=== PATIENT | male | born 1965 | race Caucasian/White ===

== ENCOUNTER 2022-11-10 19:04 | Emergency (ER) | payer BC ==
[2022-11-10] MEDS ORDERED: fentaNYL 50 MCG/ML SDV IVPUSH ONE (19:16)
[2022-11-10] MEDS ORDERED: HYDROmorphone 1 MG/ML Syringe IVPUSH ONE ×4 (19:38→21:25)
[2022-11-10 19:39] LABS: PTT,PARTIAL THROMBOPLSTIN TIME 22.7 SEC (23.6-33.6)
[2022-11-10 19:41] LABS: CHLORIDE,CL 101 mmol/L (98-107); SODIUM,NA 139 mmol/L (136-145)
[2022-11-10 19:44] LABS: ANION GAP 12.7 mmol/L (5-15); ESTIMATED GFR 78 mL/min (>=60)
[2022-11-10] MEDS ORDERED: HYDROmorphone 1 MG/ML Syringe ONE ×3 (20:51→21:29)
== END 2022-11-10 22:25 | disposition short-term general hospital (02) ==
LOC: VM.ED 19:04
DX: S22.42XA Multiple fractures of ribs, left side, initial encounter for closed fracture (principal); S27.0XXA Traumatic pneumothorax, initial encounter; M54.50 Low back pain, unspecified; I10 Essential (primary) hypertension; W18.30XA Fall on same level, unspecified, initial encounter
CPT/HCPCS: 32551; 71045; 71250; 72131; 72170; 80053; 82550; 85025; 85610; 85730; 96374; 96375; 99285; 99285-25; C1729; J1170; J3010